=== PATIENT | male | born 1985 | race African-American/Black ===

== ENCOUNTER 2019-11-04 07:18 | Emergency (ER) | payer SELFPAY ==
[~2019-11-04] VITALS: Ht 175.3 cm; Wt 65.0 kg
[2019-11-04] MEDS ORDERED: KETOROLAC 30MG/ML VIAL IM ONE (09:30)
[2019-11-04] MEDS ORDERED: DEXAMETHASONE 10 MG/ML VIAL IM ONE (09:30)
[2019-11-04] MEDS ORDERED: CYCLOBENZAPRINE 10MG TABLET PO ONE (09:30)
[2019-11-04 10:23] LABS: CLARITY URINE CLEAR (CLEAR); COLOR URINE YELLOW (YELLOW); KETONES URINE 2+ (NEGATIVE); LEUKOCYTE ESTERASE URINE NEGATIVE (NEGATIVE); NITRITE URINE NEGATIVE (NEGATIVE); OCCULT BLOOD URINE NEGATIVE (NEGATIVE); PH URINE 5.5 (4.5-8.0); PROTEIN URINE TRACE (NEGATIVE); SPECIFIC GRAVITY URINE 1.034 (1.005-1.030)
[2019-11-04 11:30] VITALS: BP 118/70
== END 2019-11-04 12:16 | disposition home or self-care (01) ==
LOC: ER 07:18
DX: M54.9 Dorsalgia, unspecified (principal); M79.10 Myalgia, unspecified site; J45.909 Unspecified asthma, uncomplicated
CPT/HCPCS: 81003; 87070; 87430; 87804; 96372; 99283; J1100; J1885

== ENCOUNTER 2022-10-06 08:25 | Emergency (ER) | payer SELFPAY ==
[~2022-10-06] VITALS: Ht 172.7 cm; Wt 80.0 kg
[2022-10-06] MEDS ORDERED: SODIUM CHLORIDE 0.9% 1,000 ML IV ONE (08:45)
[2022-10-06] MEDS ORDERED: KETOROLAC 15MG/ML VIAL IV ONE (08:45)
[2022-10-06 10:06] LABS: BASOPHILS % 0.7 % (0.0-2.0); EOSINOPHILS % 0.4 % (0.0-5.0); HEMOGLOBIN. 13.3 g/dL (14.0-18.0); LYMPHOCYTES % 9.9 % (20.0-50.0); MEAN CORPUSCULAR HEMOGLOBIN 30.9 pg (28.0-32.0); MEAN CORPUSCULAR VOLUME 90.4 fL (80.0-94.0); MEAN PLATELET VOLUME 7.4 fl (7.4-10.4); MONOCYTES % 11.5 % (2.0-8.0); NEUTROPHILS % 77.5 % (40.0-76.0); PLATELET 338 x1000/uL (130-400); RED BLOOD CELL COUNT 4.31 mill/uL (4.7-6.1)
[2022-10-06 10:13] LABS: CHLORIDE 108 mEq/L (98-107)
[2022-10-06] MEDS ORDERED: SODIUM CHLORIDE 0.9% 1,000 ML IV NR (11:15)
[2022-10-06] MEDS ORDERED: AMPICILLIN SOD/SULBACTAM NA 3 G in SODIUM CHLORIDE 0.9% 100 ML IV SCH (12:00)
[2022-10-06] MEDS ORDERED: IOHEXOL-300 100 ML BOTTLE ONE ×2 (14:24→21:06)
[2022-10-06] MEDS ORDERED: IBUP-2029 MT (14:36)
[2022-10-06] MEDS ORDERED: CLIN-194 MT (14:36)
[2022-10-06] MEDS ORDERED: CLINDAMYCIN HCL 150MG CAPSULE PO ONE (14:45)
[2022-10-06 15:03] VITALS: BP 133/86
== END 2022-10-06 15:08 | disposition home or self-care (01) ==
LOC: ER 08:25
DX: K04.7 Periapical abscess without sinus (principal); Z20.822 Contact with and (suspected) exposure to COVID-19
CPT/HCPCS: 36415; 70487; 80053; 85025; 87426; 96361; 96365; 96375; 99285; C9803; J0295; J1885; J7030; J7050; Q9967

== ENCOUNTER 2024-11-22 01:19 | Emergency (ER) | payer SELFPAY ==
[~2024-11-22] VITALS: Ht 175.3 cm; Wt 66.0 kg
[~2024-11-22 01:19] MED LIST: CLIN-194 MT; IBUP-2029 MT
[2024-11-22 01:30] VITALS: O2SAT 100
[2024-11-22] MEDS: ONDANSETRON HCL 4MG/2ML INJ IM ONE (04:01)
[2024-11-22] MEDS: KETOROLAC 30MG/ML VIAL IM ONE (04:01)
[2024-11-22 04:07] VITALS: BP 123/81; PULSE 77; RESP 16; TEMP 36.72516; O2SAT 100
== END 2024-11-22 04:16 | disposition home or self-care (01) ==
LOC: ER 01:32
DX: B34.9 Viral infection, unspecified (principal)
CPT/HCPCS: 96372; 99284; J1885; J2405; Z7610

== ENCOUNTER 2024-11-24 05:29 | Emergency (ER) | payer SELFPAY ==
[~2024-11-24] VITALS: Ht 175.3 cm; Wt 61.0 kg
[2024-11-24 05:31] VITALS: O2SAT 95
[2024-11-24 05:36] VITALS: BP 140/84; PULSE 91; RESP 16; TEMP 97.8; O2SAT 98
[2024-11-24] MEDS ORDERED: ACETAMINOPHEN 325MG TABLET PO STA (06:00)
[2024-11-24] MEDS ORDERED: MAGNESIUM/ALUMINUM HYDROXIDE/SIMETHICONE 30ML UDC PO STA (06:00)
[2024-11-24] MEDS ORDERED: DICYCLOMINE 10 MG/5 ML ORAL SYR PO STA (06:00)
[2024-11-24 06:04] LABS: CLARITY URINE CLEAR (CLEAR); COLOR URINE YELLOW (YELLOW); GLUCOSE URINE NEGATIVE (NEGATIVE); KETONES URINE 1+ (NEGATIVE); LEUKOCYTE ESTERASE URINE NEGATIVE (NEGATIVE); NITRITE URINE NEGATIVE (NEGATIVE); OCCULT BLOOD URINE NEGATIVE (NEGATIVE); PROTEIN URINE NEGATIVE (NEGATIVE); SPECIFIC GRAVITY URINE 1.004 (1.005-1.030); UROBILINOGEN URINE 0.2 E.U./dL (0.2-1.0)
[2024-11-24] MEDS ORDERED: ONDANSETRON 4MG ODT PO ONE (06:15)
[2024-11-24 06:26] LABS: CHLORIDE 101 mEq/L (98-107); POTASSIUM 3.5 mEq/L (3.5-5.1); SODIUM 133 mEq/L (136-145)
[2024-11-24 06:27] LABS: CARBON DIOXIDE 22 mEq/L (21-32)
[2024-11-24 06:28] LABS: CALCIUM 8.9 mg/dL (8.7-10.4)
[2024-11-24 06:32] LABS: CREATININE 0.9 mg/dL (0.6-1.3); GLUCOSE 103 mg/dL (70-105)
[2024-11-24 06:33] LABS: UREA NITROGEN BLOOD 7 mg/dL (9-23)
[2024-11-24 06:34] LABS: ALANINE AMINOTRANSFERASE 19 IU/L (10-49); ASPARTATE AMINOTRANSFERASE 24 IU/L (<34)
[2024-11-24 06:35] LABS: BILIRUBIN DIRECT < 0.1 mg/dL (<=3.0); BILIRUBIN TOTAL 0.2 mg/dL (0.1-1.0); PROTEIN TOTAL 7.2 g/dL (6.0-8.3)
[2024-11-24 06:37] LABS: BASOPHILS % 0.2 % (0.0-2.0); HEMATOCRIT. 46.6 % (42.0-52.0); HEMOGLOBIN. 15.7 g/dL (14.0-18.0); LYMPHOCYTES % 9.3 % (20.0-50.0); MEAN CORPUSCULAR HEMOGLOBIN 30.8 pg (28.0-32.0); MEAN CORPUSCULAR HGB CONC 33.7 g/dL (31.0-37.0); MEAN CORPUSCULAR VOLUME 91.2 fL (80.0-94.0); MEAN PLATELET VOLUME 7.4 fl (7.4-10.4); MONOCYTES % 12.8 % (2.0-8.0); NEUTROPHILS % 77.7 % (40.0-76.0); PLATELET 234 x1000/uL (130-400); RED CELL DISTRIBUTION WIDTH 13.9 % (11.6-14.6); WHITE BLOOD COUNT 10.7 x1000/uL (4.5-11.0)
[2024-11-24] MEDS: HALOPERIDOL LACTATE 5MG/ML VIAL IM ONE (07:01)
[2024-11-24] MEDS ORDERED: ONDA4TAB50 MT (07:18)
[2024-11-24] MEDS ORDERED: DICYCLOMINE HCL 10MG CAPSULE PO NR (08:45)
== END 2024-11-24 08:04 | disposition home or self-care (01) ==
LOC: ER 05:29
DX: R10.13 Epigastric pain (principal); R11.10 Vomiting, unspecified; R19.7 Diarrhea, unspecified; F12.10 Cannabis abuse, uncomplicated
CPT/HCPCS: 80076; 80048; 81003; 83690; 85025; 36415; 76705; 93005; 96372; 99285; J1630; Z7610 ×2